=== PATIENT | female | born 1995 | race Caucasian/White ===

== ENCOUNTER 2017-07-01 15:36 | Emergency (ER) | payer BC ==
[~2017-07-01 15:36] MED LIST: KET10 PO
[2017-07-01] MEDS ORDERED: KETOROLAC 30 MG/ML VIAL IM ONE (16:05)
[2017-07-01] MEDS ORDERED: LORazepam 1 MG TAB PO ONE (16:05)
--- NOTE | 2017-07-01 16:09 | ER Report ---
History and Physical Time Seen By MD: 15:59 Hx. of Stated Complaint: MENSTRUAL CRAMPING (DILLON ARIAS MD) HPI/ROS CHIEF COMPLAINT: Abdominal pain HISTORY OF PRESENT ILLNESS: 21-year-old female reports history of endometriosis as diagnosed by her [employer]INER and history of severe menstrual cramps requiring hospital visit to the ER presents with pain similar to menstrual cramps onset today uncontrolled by medication prescribed every [address] Woodward. She does not recall the name at this time. She denies vaginal discharge or dysuria hematuria frequency or urgency. She is here today with her grandmother. She is tearful at this time. No fevers. No other concerns or complaints today REVIEW OF SYSTEMS: Constitutional: No fever, no chills. Eyes: No discharge. ENT: No sore throat. Cardiovascular: No chest pain, no palpitations. Respiratory: No cough, no shortness of breath. Gastrointestinal: No bloody stools Genitourinary: No hematuria. Musculoskeletal: No back pain. Skin: No rashes. Neurological: No headache. 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 She is tearful and appears to be in acute distress due to pain Eyes: Pupils equal and round no pallor or injection. ENT, Mouth: Mucous membranes are moist. Respiratory: There are no retractions, lungs are clear to auscultation. Cardiovascular: Regular rate and rhythm. No murmurs gallops or rubs Gastrointestinal: Abdomen is soft and non tender, no masses, bowel sounds normal. Neurological: Normal exam Skin: Warm and dry, no rashes. Musculoskeletal: Neck is supple non tender. Extremities are nontender, nonswollen and have full range of motion. No edema DIFFERENTIAL DIAGNOSIS: After history and physical exam differential diagnosis was considered for abdominal pain, appendicitis, endometriosis, ovarian cysts, ovarian torsion, cystitis endometritis PID (DILLON ARIAS MD) Medical Decision Making Data Points Result Diagram: 07/01/17 1621 07/01/17 1621 Laboratory Hematology Test 07/01/17 15:52 07/01/17 16:21 Urine Color Yellow Urine Clarity Clear Urine pH 6.0 pH (4.8-9.5) Urine Specific [place] 1.018 Urine Protein Negative mg/dL (NEGATIVE) Urine Glucose (UA) Negative mg/dL (NEGATIVE) Urine Ketones Negative mg/dL (NEGATIVE) Urine Blood Negative (NEGATIVE) Urine Nitrite Negative (NEGATIVE) Urine Bilirubin Negative (NEGATIVE) Urine Urobilinogen Negative mg/dL (0.2-1.9) Urine Leukocyte Esterase Negative (NEGATIVE) Urine RBC <1 /HPF (0-2/HPF) Urine WBC 2 /HPF (0-5/HPF) Urine Squamous Epithelial Cells None /LPF (</=FEW) Urine Bacteria Negative /HPF (NONE-FEW) Urine Mucus None /HPF (NONE-FEW) Urine HCG, Qualitative Negative (NEGATIVE) Red Blood Count 4.38 M/uL (4.17-5.56) Mean Corpuscular Volume 89.3 fL (80.0-96.0) Mean Corpuscular Hemoglobin 30.8 pg (26.0-33.0) Mean Corpuscular Hemoglobin Concent 34.4 g/dL (32.0-36.0) Red Cell Distribution Width 13.5 % (11.5-14.5) Mean Platelet Volume 7.1 fL (7.2-11.1) Neutrophils (%) (Auto) 75.9 % (39.4-72.5) Lymphocytes (%) (Auto) 17.8 % (17.6-49.6) Monocytes (%) (Auto) 5.2 % (4.1-12.4) Eosinophils (%) (Auto) 0.6 % (0.4-6.7) Basophils (%) (Auto) 0.5 % (0.3-1.4) Nucleated RBC Relative Count (auto) 0.0 /100WBC Neutrophils # (Auto) 6.7 K/uL (2.0-7.4) Lymphocytes # (Auto) 1.6 K/uL (1.3-3.6) Monocytes # (Auto) 0.5 K/uL (0.3-1.0) Eosinophils # (Auto) 0.1 K/uL (0.0-0.5) Basophils # (Auto) 0.0 K/uL (0.0-0.1) Nucleated RBC Absolute Count (auto) 0.00 K/uL Sodium Level 137 mmol/L (137-145) Potassium Level 4.0 mmol/L (3.5-5.0) Chloride Level 101 mmol/L (98-107) Carbon Dioxide Level 22 mmol/L (22-31) Blood Urea Nitrogen 9 mg/dl (7-18) Creatinine 0.70 mg/dl (0.52-1.04) Glomerular Filtration Rate Calc > 60.0 Random Glucose 113 mg/dl (75-110) Calcium Level 9.3 mg/dl (8.4-10.2) Lipase 310 U/L (23-300) Chemistry Test 07/01/17 15:52 07/01/17 16:21 Urine Color Yellow Urine Clarity Clear Urine pH 6.0 pH (4.8-9.5) Urine Specific [place] 1.018 Urine Protein Negative mg/dL (NEGATIVE) Urine Glucose (UA) Negative mg/dL (NEGATIVE) Urine Ketones Negative mg/dL (NEGATIVE) Urine Blood Negative (NEGATIVE) Urine Nitrite Negative (NEGATIVE) Urine Bilirubin Negative (NEGATIVE) Urine Urobilinogen Negative mg/dL (0.2-1.9) Urine Leukocyte Esterase Negative (NEGATIVE) Urine RBC <1 /HPF (0-2/HPF) Urine WBC 2 /HPF (0-5/HPF) Urine Squamous Epithelial Cells None /LPF (</=FEW) Urine Bacteria Negative /HPF (NONE-FEW) Urine Mucus None /HPF (NONE-FEW) Urine HCG, Qualitative Negative (NEGATIVE) White Blood Count 8.9 k/uL (4.5-11.0) Red Blood Count 4.38 M/uL (4.17-5.56) Hemoglobin 13.5 g/dL (12.0-16.0) Hematocrit 39.1 % (34.0-47.0) Mean Corpuscular Volume 89.3 fL (80.0-96.0) Mean Corpuscular Hemoglobin 30.8 pg (26.0-33.0) Mean Corpuscular Hemoglobin Concent 34.4 g/dL (32.0-36.0) Red Cell Distribution Width 13.5 % (11.5-14.5) Platelet Count 257 K/uL (150-450) Mean Platelet Volume 7.1 fL (7.2-11.1) Neutrophils (%) (Auto) 75.9 % (39.4-72.5) Lymphocytes (%) (Auto) 17.8 % (17.6-49.6) Monocytes (%) (Auto) 5.2 % (4.1-12.4) Eosinophils (%) (Auto) 0.6 % (0.4-6.7) Basophils (%) (Auto) 0.5 % (0.3-1.4) Nucleated RBC Relative Count (auto) 0.0 /100WBC Neutrophils # (Auto) 6.7 K/uL (2.0-7.4) Lymphocytes # (Auto) 1.6 K/uL (1.3-3.6) Monocytes # (Auto) 0.5 K/uL (0.3-1.0) Eosinophils # (Auto) 0.1 K/uL (0.0-0.5) Basophils # (Auto) 0.0 K/uL (0.0-0.1) Nucleated RBC Absolute Count (auto) 0.00 K/uL Glomerular Filtration Rate Calc > 60.0 Calcium Level 9.3 mg/dl (8.4-10.2) Lipase 310 U/L (23-300) Urinalysis Test 07/01/17 15:52 Urine Color Yellow Urine Clarity Clear Urine pH 6.0 pH (4.8-9.5) Urine Specific [place] 1.018 Urine Protein Negative mg/dL (NEGATIVE) Urine Glucose (UA) Negative mg/dL (NEGATIVE) Urine Ketones Negative mg/dL (NEGATIVE) Urine Blood Negative (NEGATIVE) Urine Nitrite Negative (NEGATIVE) Urine Bilirubin Negative (NEGATIVE) Urine Urobilinogen Negative mg/dL (0.2-1.9) Urine Leukocyte Esterase Negative (NEGATIVE) Urine RBC <1 /HPF (0-2/HPF) Urine WBC 2 /HPF (0-5/HPF) Urine Squamous Epithelial Cells None /LPF (</=FEW) Urine Bacteria Negative /HPF (NONE-FEW) Urine Mucus None /HPF (NONE-FEW) Urine HCG, Qualitative Negative (NEGATIVE) (DOUGLAS ALEMAN) ED Course/Re-evaluation ED Course Pt feeling much better upon return from ultrasound and after ED therapy. Vitals remain stable. Pt turned over to Dr Starks at shift change 6pm, pending final radiology read. Decision to Disposition Date: Jul 01, 2017 (DILLON ARIAS MD) Depart Departure Latest Vital Signs Vital Signs Date Time Temp Pulse Resp B/P (MAP) Pulse Ox O2 Delivery O2 Flow Rate FiO2 07/01/17 15:41 97.7 62 18 115/64 94 Room Air (DOUGLAS ALEMAN) Impression: Primary Impression: Pelvic pain Condition: Improved DILLON ARIAS MD Jul 01, 2017 16:09 DOUGLAS ALEMAN Jul 01, 2017 17:45
[2017-07-01 16:30] LABS: PLATELET COUNT, AUTOMATED 257 K/uL (150-450)
--- NOTE | 2017-07-01 17:58 | ER Report ---
History and Physical Time Seen By MD: 15:41 Hx. of Stated Complaint: MENSTRUAL CRAMPING HPI/ROS 21-year-old female reports history of endometriosis as diagnosed by her [employer]ER and history of severe menstrual cramps requiring hospital visit to the ER presents with pain similar to menstrual cramps onset today uncontrolled by medication prescribed every [address] Woodward. She does not recall the name at this time. She denies vaginal discharge or dysuria hematuria frequency or urgency. She is here today with her grandmother. She is tearful at this time. No fevers. No other concerns or complaints today. She has had multiple sets of diarrhea recently. Allergies: Coded Allergies: No Known Drug Allergies (Unverified , 08/27/16) Home Meds Active Scripts Ketorolac Tromethamine (KETOROLAC TROMETHAMINE) 10 Mg Tab, 10 MG PO Q6H Y for PAIN, #12 TAB 0 Refills Prov:DILLON ARIAS MD 07/01/17 Ketorolac Tromethamine (KETOROLAC TROMETHAMINE) 10 Mg Tab, 10 MG PO Q6H, #20 TAB Prov:ELIZABETH JOHNSON 08/27/16 Constitutional Physical Exam General Appearance: The patient is alert, has no immediate need for airway protection and no signs of toxicity. Tearful appears to be in distress due to pain Eyes: Pupils equal and round no pallor or injection. ENT, Mouth: Mucous membranes are moist. Respiratory: There are no retractions, lungs are clear to auscultation. Cardiovascular: Regular rate and rhythm. No murmurs gallops or rubs Gastrointestinal: Abdomen is soft and non tender, no masses, bowel sounds normal. Neurological: Normal neuro exam Skin: Warm and dry, no rashes. Musculoskeletal: Neck is supple non tender. Extremities are nontender, nonswollen and have full range of motion. No edema DIFFERENTIAL DIAGNOSIS: After history and physical exam differential diagnosis was considered for endometriosis and endometritis. Appendicitis urinary tract infection diarrhea Medical Decision Making Data Points Laboratory Hematology Test 07/01/17 15:52 07/01/17 16:21 Urine Color Yellow Urine Clarity Clear Urine pH 6.0 pH (4.8-9.5) Urine Specific [place] 1.018 Urine Protein Negative mg/dL (NEGATIVE) Urine Glucose (UA) Negative mg/dL (NEGATIVE) Urine Ketones Negative mg/dL (NEGATIVE) Urine Blood Negative (NEGATIVE) Urine Nitrite Negative (NEGATIVE) Urine Bilirubin Negative (NEGATIVE) Urine Urobilinogen Negative mg/dL (0.2-1.9) Urine Leukocyte Esterase Negative (NEGATIVE) Urine RBC <1 /HPF (0-2/HPF) Urine WBC 2 /HPF (0-5/HPF) Urine Squamous Epithelial Cells None /LPF (</=FEW) Urine Bacteria Negative /HPF (NONE-FEW) Urine Mucus None /HPF (NONE-FEW) Urine HCG, Qualitative Negative (NEGATIVE) Red Blood Count 4.38 M/uL (4.17-5.56) Mean Corpuscular Volume 89.3 fL (80.0-96.0) Mean Corpuscular Hemoglobin 30.8 pg (26.0-33.0) Mean Corpuscular Hemoglobin Concent 34.4 g/dL (32.0-36.0) Red Cell Distribution Width 13.5 % (11.5-14.5) Mean Platelet Volume 7.1 fL (7.2-11.1) Neutrophils (%) (Auto) 75.9 % (39.4-72.5) Lymphocytes (%) (Auto) 17.8 % (17.6-49.6) Monocytes (%) (Auto) 5.2 % (4.1-12.4) Eosinophils (%) (Auto) 0.6 % (0.4-6.7) Basophils (%) (Auto) 0.5 % (0.3-1.4) Nucleated RBC Relative Count (auto) 0.0 /100WBC Neutrophils # (Auto) 6.7 K/uL (2.0-7.4) Lymphocytes # (Auto) 1.6 K/uL (1.3-3.6) Monocytes # (Auto) 0.5 K/uL (0.3-1.0) Eosinophils # (Auto) 0.1 K/uL (0.0-0.5) Basophils # (Auto) 0.0 K/uL (0.0-0.1) Nucleated RBC Absolute Count (auto) 0.00 K/uL Sodium Level 137 mmol/L (137-145) Potassium Level 4.0 mmol/L (3.5-5.0) Chloride Level 101 mmol/L (98-107) Carbon Dioxide Level 22 mmol/L (22-31) Blood Urea Nitrogen 9 mg/dl (7-18) Creatinine 0.70 mg/dl (0.52-1.04) Glomerular Filtration Rate Calc > 60.0 Random Glucose 113 mg/dl (75-110) Calcium Level 9.3 mg/dl (8.4-10.2) Lipase 310 U/L (23-300) Chemistry Test 07/01/17 15:52 07/01/17 16:21 Urine Color Yellow Urine Clarity Clear Urine pH 6.0 pH (4.8-9.5) Urine Specific [place] 1.018 Urine Protein Negative mg/dL (NEGATIVE) Urine Glucose (UA) Negative mg/dL (NEGATIVE) Urine Ketones Negative mg/dL (NEGATIVE) Urine Blood Negative (NEGATIVE) Urine Nitrite Negative (NEGATIVE) Urine Bilirubin Negative (NEGATIVE) Urine Urobilinogen Negative mg/dL (0.2-1.9) Urine Leukocyte Esterase Negative (NEGATIVE) Urine RBC <1 /HPF (0-2/HPF) Urine WBC 2 /HPF (0-5/HPF) Urine Squamous Epithelial Cells None /LPF (</=FEW) Urine Bacteria Negative /HPF (NONE-FEW) Urine Mucus None /HPF (NONE-FEW) Urine HCG, Qualitative Negative (NEGATIVE) White Blood Count 8.9 k/uL (4.5-11.0) Red Blood Count 4.38 M/uL (4.17-5.56) Hemoglobin 13.5 g/dL (12.0-16.0) Hematocrit 39.1 % (34.0-47.0) Mean Corpuscular Volume 89.3 fL (80.0-96.0) Mean Corpuscular Hemoglobin 30.8 pg (26.0-33.0) Mean Corpuscular Hemoglobin Concent 34.4 g/dL (32.0-36.0) Red Cell Distribution Width 13.5 % (11.5-14.5) Platelet Count 257 K/uL (150-450) Mean Platelet Volume 7.1 fL (7.2-11.1) Neutrophils (%) (Auto) 75.9 % (39.4-72.5) Lymphocytes (%) (Auto) 17.8 % (17.6-49.6) Monocytes (%) (Auto) 5.2 % (4.1-12.4) Eosinophils (%) (Auto) 0.6 % (0.4-6.7) Basophils (%) (Auto) 0.5 % (0.3-1.4) Nucleated RBC Relative Count (auto) 0.0 /100WBC Neutrophils # (Auto) 6.7 K/uL (2.0-7.4) Lymphocytes # (Auto) 1.6 K/uL (1.3-3.6) Monocytes # (Auto) 0.5 K/uL (0.3-1.0) Eosinophils # (Auto) 0.1 K/uL (0.0-0.5) Basophils # (Auto) 0.0 K/uL (0.0-0.1) Nucleated RBC Absolute Count (auto) 0.00 K/uL Glomerular Filtration Rate Calc > 60.0 Calcium Level 9.3 mg/dl (8.4-10.2) Lipase 310 U/L (23-300) Urinalysis Test 07/01/17 15:52 Urine Color Yellow Urine Clarity Clear Urine pH 6.0 pH (4.8-9.5) Urine Specific [place] 1.018 Urine Protein Negative mg/dL (NEGATIVE) Urine Glucose (UA) Negative mg/dL (NEGATIVE) Urine Ketones Negative mg/dL (NEGATIVE) Urine Blood Negative (NEGATIVE) Urine Nitrite Negative (NEGATIVE) Urine Bilirubin Negative (NEGATIVE) Urine Urobilinogen Negative mg/dL (0.2-1.9) Urine Leukocyte Esterase Negative (NEGATIVE) Urine RBC <1 /HPF (0-2/HPF) Urine WBC 2 /HPF (0-5/HPF) Urine Squamous Epithelial Cells None /LPF (</=FEW) Urine Bacteria Negative /HPF (NONE-FEW) Urine Mucus None /HPF (NONE-FEW) Urine HCG, Qualitative Negative (NEGATIVE) ED Course/Re-evaluation ED Course Much improved after pelvic ultrasound any therapy. Vitals remain stable for discharge. Abdomen rechecked and no signs of appendicitis or peritonitis are present. Encouraged to follow up with [employer] for further care and evaluation. Decision to Disposition Date: Jul 01, 2017 Decision to Disposition Time: 19:00 Depart Departure Latest Vital Signs Impression: Primary Impression: Pelvic pain Condition: Improved Disposition: HOME OR SELF-CARE New Scripts Ketorolac Tromethamine (KETOROLAC TROMETHAMINE) 10 Mg Tab 10 MG PO Q6H Y for PAIN, #12 TAB 0 Refills Prov: DILLON ARIAS MD 07/01/17 Patient Instructions: Pelvic Pain (ED) DILLON ARIAS MD Jul 01, 2017 17:58
[2017-07-01] MEDS ORDERED: KET10 PO (18:00)
--- NOTE | 2017-07-01 18:11 | RADIOLOGY IMAGING REPORT ---
FACILITY: [facility] [place] PATIENT NAME: Cata Gerard : 1995 MR: [id number] V: [id number] EXAM DATE: ORDERING PHYSICIAN: DILLON ARIAS TECHNOLOGIST: Location: [facility] Patient: Cata Gerard : 1995 Visit/Account:[id number] Date of Sevice: 07/01/2017 TRANSVAGINAL NON-OB HISTORY: PELVIC PAIN, ovarian torsion, endometriosis TECHNIQUE: Transvaginal ultrasound pelvis. COMPARISON: August 27, 2016 FINDINGS: Uterus: ; 6.4 cm length x 3.2 cm AP x 4.6 cm transverse. Myometrium: Hypervascular. Endometrium: Unremarkable; double thickness 5.2 mm. Cervix: Grossly negative. Ovaries: Right - 2.9 x 1.8 x 2.4 cm Left - 2.5 x 1.6 x 2.9 cm Blood flow is documented in each ovary by duplex Doppler ultrasound. Adnexa: There are prominent adnexal vessels bilaterally. Free pelvic fluid: Mild. IMPRESSION: The uterine myometrium appears hypervascular although discrete mass is not demonstrated Both ovaries appeared unremarkable with arterial and venous flow noted in both ovary Mild amount of free pelvic fluid Mildly prominent adnexal vessels Report Dictated By: Neyda Miles MD at 07/01/2017 6:04 PM Report E-Signed By: Neyda Miles MD at 07/01/2017 6:07 PM WSN:[id number]
[2017-07-01 19:00] VITALS: BP 108/65
== END 2017-07-01 19:03 | disposition home or self-care (01) ==
LOC: ER 16:01
DX: R10.2 Pelvic and perineal pain (principal)
CPT/HCPCS: 36415; 76830; 81001; 81025; 83690; 85025; 96372; 99283; J1885; 82310; 82374; 82435; 82565; 82947; 84132; 84295; 84520

== ENCOUNTER 2017-09-20 11:14 | Emergency (ER) | payer BC ==
--- NOTE | 2017-09-20 11:21 | ER Report ---
History and Physical Time Seen By MD: 11:20 HPI/ROS CHIEF COMPLAINT: Menstrual cramping HISTORY OF PRESENT ILLNESS: This is a 21-year-old female who presents to the emergency department for her "usual" menstrual cramps. Patient states that she started her menstrual cycle this morning and subsequently developed her "normal " menstrual type of cramps. Patient states that she has been told by her FIELD CONTACT TECHNICIAN back home that she does have endometriosis. Patient denies dysuria, no diarrhea however she does have nausea secondary to the pain. Patient denies shortness of breath, chest pain, rashes or abnormal menstrual discharge. Patient states that she has been here several times for this and she does not want any imaging studies done she adjust states she needs help with the pain. She has not followed up with FIELD CONTACT TECHNICIAN in [place] we did discuss this and we will send her home with some information regarding the local FIELD CONTACT TECHNICIAN's. REVIEW OF SYSTEMS: Respiratory: No cough, no dyspnea. Cardiovascular: No chest pain, no palpitations. Gastrointestinal: As above. Musculoskeletal: No back pain. Allergies: Coded Allergies: No Known Drug Allergies (Unverified , 09/20/17) Home Meds Active Scripts Ketorolac Tromethamine (KETOROLAC TROMETHAMINE) 10 Mg Tab, 10 MG PO Q6H, #20 TAB Prov:ELIZABETH JOHNSON 08/27/16 Reported Medications [ Control] No Conflict Check 09/20/17 Discontinued Scripts Ketorolac Tromethamine (KETOROLAC TROMETHAMINE) 10 Mg Tab, 10 MG PO Q6H Y for PAIN, #12 TAB 0 Refills Prov:DILLON ARIAS MD 07/01/17 Past Medical/Surgical History Patient has a past medical and surgical history of endometriosis, menstrual cramps, compartment syndrome to lower extremities bilaterally. Reviewed Nurses Notes: Yes Constitutional Vital Sign - Last 24 Hours 09/20/17 09/20/17 09/20/17 09/20/17 11:20 11:30 12:00 12:30 Temp 98.0 Pulse 64 56 Resp 18 B/P (MAP) 95/73 102/80 (87) 93/55 (68) Pulse Ox 94 97 86 94 O2 Delivery Room Air Intake and Output 09/20/17 09/20/17 09/21/17 15:00 23:00 07:00 Intake Total 1000 ml Balance 1000 ml Physical Exam General Appearance: The patient is alert, has no immediate need for airway protection and no current signs of toxicity. Eyes: Pupils equal and round no injection. Respiratory: Chest is non tender, lungs are clear to auscultation. Cardiac: regular rate and rhythm. Gastrointestinal: Abdomen is soft, tender with deep palpation to right and left lower quadrants. no masses, bowel sounds normal. Musculoskeletal: Neck: Neck is supple and non tender. Extremities have full range of motion and are non tender. Skin: No rashes or lesions. DIFFERENTIAL DIAGNOSIS: After history and physical exam differential diagnosis was considered for abdominal pain including but not limited to appendicitis, cholecystitis, menstrual cramps, gastritis and urinary tract infection. Medical Decision Making Data Points Result Diagram: 09/20/17 1131 09/20/17 1131 Laboratory Hematology Test 09/20/17 00:00 09/20/17 11:31 Urine Color Yellow Urine Clarity Cloudy Urine pH 7.0 pH (4.8-9.5) Urine Specific [place] 1.023 Urine Protein Negative mg/dL (NEGATIVE) Urine Glucose (UA) Negative mg/dL (NEGATIVE) Urine Ketones Negative mg/dL (NEGATIVE) Urine Blood Negative (NEGATIVE) Urine Nitrite Negative (NEGATIVE) Urine Bilirubin Negative (NEGATIVE) Urine Urobilinogen Negative mg/dL (0.2-1.9) Urine Leukocyte Esterase Negative (NEGATIVE) Urine RBC 1 /HPF (0-2/HPF) Urine WBC 1 /HPF (0-5/HPF) Urine Squamous Epithelial Cells Many /LPF (</=FEW) Urine Amorphous Crystals Few /HPF Urine Bacteria Few /HPF (NONE-FEW) Urine Mucus Few /HPF (NONE-FEW) Urine HCG, Qualitative Negative (NEGATIVE) Red Blood Count 4.95 M/uL (4.17-5.56) Mean Corpuscular Volume 87.8 fL (80.0-96.0) Mean Corpuscular Hemoglobin 30.2 pg (26.0-33.0) Mean Corpuscular Hemoglobin Concent 34.4 g/dL (32.0-36.0) Red Cell Distribution Width 13.1 % (11.5-14.5) Mean Platelet Volume 7.3 fL (7.2-11.1) Neutrophils (%) (Auto) 67.0 % (39.4-72.5) Lymphocytes (%) (Auto) 23.0 % (17.6-49.6) Monocytes (%) (Auto) 7.8 % (4.1-12.4) Eosinophils (%) (Auto) 1.4 % (0.4-6.7) Basophils (%) (Auto) 0.8 % (0.3-1.4) Nucleated RBC Relative Count (auto) 0.1 /100WBC Neutrophils # (Auto) 5.2 K/uL (2.0-7.4) Lymphocytes # (Auto) 1.8 K/uL (1.3-3.6) Monocytes # (Auto) 0.6 K/uL (0.3-1.0) Eosinophils # (Auto) 0.1 K/uL (0.0-0.5) Basophils # (Auto) 0.1 K/uL (0.0-0.1) Nucleated RBC Absolute Count (auto) 0.00 K/uL Sodium Level 141 mmol/L (137-145) Potassium Level 3.8 mmol/L (3.5-5.0) Chloride Level 101 mmol/L (98-107) Carbon Dioxide Level 24 mmol/L (22-31) Blood Urea Nitrogen 13 mg/dl (7-18) Creatinine 0.70 mg/dl (0.52-1.04) Glomerular Filtration Rate Calc > 60.0 Random Glucose 93 mg/dl (75-110) Calcium Level 10.4 mg/dl (8.4-10.2) Total Bilirubin 0.8 mg/dl (0.2-1.3) Aspartate Amino Transf (AST/SGOT) 39 U/L (0-35) Alanine Aminotransferase (ALT/SGPT) 38 U/L (0-56) Alkaline Phosphatase 92 U/L (0-126) Total Protein 7.9 gm/dl (6.3-8.2) Albumin 4.5 g/dl (3.5-5.0) Chemistry Test 09/20/17 00:00 09/20/17 11:31 Urine Color Yellow Urine Clarity Cloudy Urine pH 7.0 pH (4.8-9.5) Urine Specific [place] 1.023 Urine Protein Negative mg/dL (NEGATIVE) Urine Glucose (UA) Negative mg/dL (NEGATIVE) Urine Ketones Negative mg/dL (NEGATIVE) Urine Blood Negative (NEGATIVE) Urine Nitrite Negative (NEGATIVE) Urine Bilirubin Negative (NEGATIVE) Urine Urobilinogen Negative mg/dL (0.2-1.9) Urine Leukocyte Esterase Negative (NEGATIVE) Urine RBC 1 /HPF (0-2/HPF) Urine WBC 1 /HPF (0-5/HPF) Urine Squamous Epithelial Cells Many /LPF (</=FEW) Urine Amorphous Crystals Few /HPF Urine Bacteria Few /HPF (NONE-FEW) Urine Mucus Few /HPF (NONE-FEW) Urine HCG, Qualitative Negative (NEGATIVE) White Blood Count 7.8 k/uL (4.5-11.0) Red Blood Count 4.95 M/uL (4.17-5.56) Hemoglobin 15.0 g/dL (12.0-16.0) Hematocrit 43.5 % (34.0-47.0) Mean Corpuscular Volume 87.8 fL (80.0-96.0) Mean Corpuscular Hemoglobin 30.2 pg (26.0-33.0) Mean Corpuscular Hemoglobin Concent 34.4 g/dL (32.0-36.0) Red Cell Distribution Width 13.1 % (11.5-14.5) Platelet Count 297 K/uL (150-450) Mean Platelet Volume 7.3 fL (7.2-11.1) Neutrophils (%) (Auto) 67.0 % (39.4-72.5) Lymphocytes (%) (Auto) 23.0 % (17.6-49.6) Monocytes (%) (Auto) 7.8 % (4.1-12.4) Eosinophils (%) (Auto) 1.4 % (0.4-6.7) Basophils (%) (Auto) 0.8 % (0.3-1.4) Nucleated RBC Relative Count (auto) 0.1 /100WBC Neutrophils # (Auto) 5.2 K/uL (2.0-7.4) Lymphocytes # (Auto) 1.8 K/uL (1.3-3.6) Monocytes # (Auto) 0.6 K/uL (0.3-1.0) Eosinophils # (Auto) 0.1 K/uL (0.0-0.5) Basophils # (Auto) 0.1 K/uL (0.0-0.1) Nucleated RBC Absolute Count (auto) 0.00 K/uL Glomerular Filtration Rate Calc > 60.0 Calcium Level 10.4 mg/dl (8.4-10.2) Total Bilirubin 0.8 mg/dl (0.2-1.3) Aspartate Amino Transf (AST/SGOT) 39 U/L (0-35) Alanine Aminotransferase (ALT/SGPT) 38 U/L (0-56) Alkaline Phosphatase 92 U/L (0-126) Total Protein 7.9 gm/dl (6.3-8.2) Albumin 4.5 g/dl (3.5-5.0) Urinalysis Test 09/20/17 00:00 Urine Color Yellow Urine Clarity Cloudy Urine pH 7.0 pH (4.8-9.5) Urine Specific [place] 1.023 Urine Protein Negative mg/dL (NEGATIVE) Urine Glucose (UA) Negative mg/dL (NEGATIVE) Urine Ketones Negative mg/dL (NEGATIVE) Urine Blood Negative (NEGATIVE) Urine Nitrite Negative (NEGATIVE) Urine Bilirubin Negative (NEGATIVE) Urine Urobilinogen Negative mg/dL (0.2-1.9) Urine Leukocyte Esterase Negative (NEGATIVE) Urine RBC 1 /HPF (0-2/HPF) Urine WBC 1 /HPF (0-5/HPF) Urine Squamous Epithelial Cells Many /LPF (</=FEW) Urine Amorphous Crystals Few /HPF Urine Bacteria Few /HPF (NONE-FEW) Urine Mucus Few /HPF (NONE-FEW) Urine HCG, Qualitative Negative (NEGATIVE) ED Course/Re-evaluation Clinical Indication for ER IV: Hydration, IV Access ED Course The patient was admitted to a room. A history and physical were obtained. Differential diagnoses were considered. An IV was started. A CBC, CMP were obtained. A UA and urine hCG were obtained. Lab studies are remarkable negative UA negative hCG. 1 L normal saline bolus was given. 30 mg IV Toradol. Patient states she is feeling much better. I did review the patient's lab results with her. I did tell the patient that she does need to follow-up with an FIELD CONTACT TECHNICIAN next week. Patient did express understanding. Patient had a lot of questions or concerns and was discharged home. The patient also declined any imaging she has had previous images for the same symptoms. Decision to Disposition Date: September 20, 2017 Decision to Disposition Time: 12:34 Depart Departure Latest Vital Signs Vital Signs Date Time Temp Pulse Resp B/P (MAP) Pulse Ox O2 Delivery O2 Flow Rate FiO2 09/20/17 12:30 93/55 (68) 94 09/20/17 12:00 56 09/20/17 11:20 98.0 18 Room Air Impression: Primary Impression: Menstrual cramps Condition: Improved Disposition: HOME OR SELF-CARE Referrals: RIPENING ROOM ATTENDANT 5 Days Patient Instructions: Endometriosis (ED), Menstruation (GEN) Additional Instructions: Drink plenty of fluids. Get plenty of rest. Take the Toradol as directed. If you take Toradol for pain do not take Ibuprofen too, you can take on OR the other. You can also take 2 extra strength Tylenol every 8 hours as needed for additional pain relief. Establish care with a local FIELD CONTACT TECHNICIAN next week. Return to the ED for any other concerns or worsening symptoms. ROSANNA KIRBY MISCELLANEOUS MACHINE OPERATOR-BC September 20, 2017 11:21
[2017-09-20] MEDS ORDERED: BIRTH CONTROL (11:24)
[2017-09-20] MEDS ORDERED: NS(*) 0.9% 1000 ML BAG 1,000 ML IV ONE (11:26)
[2017-09-20] MEDS ORDERED: KETOROLAC 30 MG/ML VIAL IM ONE (11:30)
[2017-09-20] MEDS ORDERED: ONDANSETRON 4 MG/2 ML VIAL IVP ONE (11:30)
[2017-09-20] MEDS ORDERED: KETOROLAC 30 MG/ML VIAL IVP ONE (11:35)
[2017-09-20 11:44] LABS: PLATELET COUNT, AUTOMATED 297 K/uL (150-450)
[2017-09-20 12:30] VITALS: BP 93/55
== END 2017-09-20 12:37 | disposition home or self-care (01) ==
LOC: ER 11:15
DX: N94.6 Dysmenorrhea, unspecified (principal)
CPT/HCPCS: 81001; 81025; 85025; 96361; 96374; 96375; 99284; J1885; J2405; J7030; 82040; 82247; 82310; 82374; 82435; 82565; 82947; 84075; 84132; 84155; 84295; 84450; 84460; 84520

== ENCOUNTER 2018-01-08 05:22 | Emergency (ER) | payer BC ==
[~2018-01-08 05:22] MED LIST changes: +BIRTH CONTROL
--- NOTE | 2018-01-08 05:33 | ER Report ---
History and Physical Time Seen By MD: 05:33 Hx. of Stated Complaint: PATIENT HAS LOWER RIGHT SIDED ABD PAIN THAT STARTED THIS AM (JENNIFER MENDOZA MD) Time Seen By MD: 07:53 (VIOLA MAN MD) HPI/ROS CHIEF COMPLAINT: abdominal pain HISTORY OF PRESENT ILLNESS: This is a 22 year old female. She started having abdominal pain this morning. Severe pain, does not radiate. Nothing makes it worse or better. Normal urination without dysuria. Loose stools, but no diarrhea or blood in the stools. Last period was about a month ago. She thinks that she may have started her period today. She has been told by doctors in [place] that they think she has endometriosis. No fevers or chills. Was feeling normal state of health prior to this starting this morning. Some nausea, no vomiting. No chest pain or shortness of breath. (JENNIFER MENDOZA MD) Allergies: Coded Allergies: No Known Drug Allergies (Unverified , 01/08/18) Home Meds Active Scripts Ketorolac Tromethamine (KETOROLAC TROMETHAMINE) 10 Mg Tab, 10 MG PO Q6H, #20 TAB Prov:ELIZABETHELIZABETH RAILCAR MECHANIC 08/27/16 Discontinued Reported Medications [ Control] No Conflict Check 09/20/17 Reviewed Nurses Notes: Yes (JENNIFER MENDOZA MD) Constitutional Vital Sign - Last 24 Hours 01/08/18 01/08/18 01/08/18 01/08/18 05:22 05:25 05:25 05:44 Temp 97.6 Pulse ??? 58 Resp 17 B/P (MAP) 119/76 119/76 (90) 103/56 (72) Pulse Ox 96 O2 Delivery Room Air 01/08/18 01/08/18 01/08/18 01/08/18 05:52 06:00 06:22 06:30 Pulse 49 B/P (MAP) 109/72 (84) 98/59 (72) Pulse Ox 88 98 01/08/18 01/08/18 01/08/18 01/08/18 06:52 07:00 07:05 07:10 Pulse 52 66 52 B/P (MAP) 105/61 (76) Pulse Ox 100 100 100 01/08/18 01/08/18 01/08/18 01/08/18 07:15 07:20 07:25 07:40 Pulse 49 56 64 61 Pulse Ox 99 97 98 96 01/08/18 01/08/18 07:45 07:50 Pulse 57 59 Pulse Ox 94 94 (VIOLA MAN MD) Physical Exam General Appearance: The patient is alert. Having severe pain and in distress from this, writhing in pain. Eyes: Pupils are equal, round. No pallor, injection or icterus. ENT: Mucous membranes are moist. Normal oral mucosa. Posterior oropharynx is normal. Neck: Supple and non tender. No lymphadenopathy. Respiratory: Lungs are clear to auscultation. Cardiovascular: Regular rate and rhythm. No murmurs, gallops or rubs. Normal capillary refill. No edema. Gastrointestinal: Abdomen is soft, tender in right lower abdomen with guarding, but no rebound. Nondistended. No masses or organomegaly. Normal active bowel sounds. No costovertebral angle tenderness with percussion. Neurological: Alert and oriented x3. Skin: Warm and dry. No rashes. Musculoskeletal: Extremities are nontender. No tenderness in palpation of the cervical, thoracic and lumbar spine. DIFFERENTIAL DIAGNOSIS: After history and physical exam, differential diagnosis was considered for abdominal pain in a female including but not limited to ovarian cyst, endometriosis, ovarian torsion, urinary tract infection, and appendicitis. (JENNIFER MENDOZA MD) Medical Decision Making Data Points Result Diagram: 01/08/18 0532 01/08/18 0532 Laboratory Hematology Test 01/08/18 05:32 01/08/18 07:36 Red Blood Count 4.73 M/uL (4.17-5.56) Mean Corpuscular Volume 90.9 fL (80.0-96.0) Mean Corpuscular Hemoglobin 31.0 pg (26.0-33.0) Mean Corpuscular Hemoglobin Concent 34.1 g/dL (32.0-36.0) Red Cell Distribution Width 12.7 % (11.5-14.5) Mean Platelet Volume 7.3 fL (7.2-11.1) Neutrophils (%) (Auto) 52.0 % (39.4-72.5) Lymphocytes (%) (Auto) 36.2 % (17.6-49.6) Monocytes (%) (Auto) 10.0 % (4.1-12.4) Eosinophils (%) (Auto) 1.3 % (0.4-6.7) Basophils (%) (Auto) 0.5 % (0.3-1.4) Nucleated RBC Relative Count (auto) 0.0 /100WBC Neutrophils # (Auto) 4.0 K/uL (2.0-7.4) Lymphocytes # (Auto) 2.8 K/uL (1.3-3.6) Monocytes # (Auto) 0.8 K/uL (0.3-1.0) Eosinophils # (Auto) 0.1 K/uL (0.0-0.5) Basophils # (Auto) 0.0 K/uL (0.0-0.1) Nucleated RBC Absolute Count (auto) 0.00 K/uL Sodium Level 139 mmol/L (137-145) Potassium Level 3.8 mmol/L (3.5-5.0) Chloride Level 102 mmol/L (98-107) Carbon Dioxide Level 26 mmol/L (22-31) Blood Urea Nitrogen 14 mg/dl (7-18) Creatinine 0.70 mg/dl (0.52-1.04) Glomerular Filtration Rate Calc > 60.0 Random Glucose 113 mg/dl (75-110) Calcium Level 9.5 mg/dl (8.4-10.2) Total Bilirubin 0.8 mg/dl (0.2-1.3) Aspartate Amino Transf (AST/SGOT) 37 U/L (0-35) Alanine Aminotransferase (ALT/SGPT) 38 U/L (0-56) Alkaline Phosphatase 65 U/L (0-126) C-Reactive Protein < 0.5 mg/dl (<1.0) Total Protein 7.3 g/dl (6.3-8.2) Albumin 4.2 g/dl (3.5-5.0) Amylase Level 91 U/L (0-110) Lipase 222 U/L (23-300) Human Chorionic Gonadotropin, Qual Negative (NEGATIVE) Chemistry Test 01/08/18 05:32 01/08/18 07:36 White Blood Count 7.7 k/uL (4.5-11.0) Red Blood Count 4.73 M/uL (4.17-5.56) Hemoglobin 14.7 g/dL (12.0-16.0) Hematocrit 43.0 % (34.0-47.0) Mean Corpuscular Volume 90.9 fL (80.0-96.0) Mean Corpuscular Hemoglobin 31.0 pg (26.0-33.0) Mean Corpuscular Hemoglobin Concent 34.1 g/dL (32.0-36.0) Red Cell Distribution Width 12.7 % (11.5-14.5) Platelet Count 314 K/uL (150-450) Mean Platelet Volume 7.3 fL (7.2-11.1) Neutrophils (%) (Auto) 52.0 % (39.4-72.5) Lymphocytes (%) (Auto) 36.2 % (17.6-49.6) Monocytes (%) (Auto) 10.0 % (4.1-12.4) Eosinophils (%) (Auto) 1.3 % (0.4-6.7) Basophils (%) (Auto) 0.5 % (0.3-1.4) Nucleated RBC Relative Count (auto) 0.0 /100WBC Neutrophils # (Auto) 4.0 K/uL (2.0-7.4) Lymphocytes # (Auto) 2.8 K/uL (1.3-3.6) Monocytes # (Auto) 0.8 K/uL (0.3-1.0) Eosinophils # (Auto) 0.1 K/uL (0.0-0.5) Basophils # (Auto) 0.0 K/uL (0.0-0.1) Nucleated RBC Absolute Count (auto) 0.00 K/uL Glomerular Filtration Rate Calc > 60.0 Calcium Level 9.5 mg/dl (8.4-10.2) Total Bilirubin 0.8 mg/dl (0.2-1.3) Aspartate Amino Transf (AST/SGOT) 37 U/L (0-35) Alanine Aminotransferase (ALT/SGPT) 38 U/L (0-56) Alkaline Phosphatase 65 U/L (0-126) C-Reactive Protein < 0.5 mg/dl (<1.0) Total Protein 7.3 g/dl (6.3-8.2) Albumin 4.2 g/dl (3.5-5.0) Amylase Level 91 U/L (0-110) Lipase 222 U/L (23-300) Human Chorionic Gonadotropin, Qual Negative (NEGATIVE) Urinalysis Test 01/08/18 07:36 (VIOLA MAN MD) ED Course/Re-evaluation Clinical Indication for ER IV: Hydration, IV Access ED Course Initially ordered lab and CT scan. Because of severe pain, gave Dilaudid 0.5mg IV and Zofran 4mg IV. Concern expressed regarding CT scan, because she has had pain like this in the past with multiple workups never showing a cause. Though has been that this may be endometriosis. Discussed with the patient, and with mother on speaker phone, regarding testing needed to rule out severe problems, but understand the interest in wanting to avoid radiation and cost if not going to help. After our conversation, we will begin with an ultrasound (transvaginal pelvic and right lower quadrant) and then proceed further if needed once the ultrasound and labs are back. (JENNIFER MENDOZA MD) ED Course ED clinical course medical decision making this 22-year-old female who presented to the emergency department with a complaint of right lower quadrant pain ultrasound confirms a ovarian cyst with free fluid in the pelvis repeat examination was benign little to no tenderness normal white count no fever I do not believe this is episodic appendicitis and do believe this is most likely frequent ruptures of ovarian cyst with complicated a potential endometriosis will refer her to [employer] and spoke to her mother and with detail Decision to Disposition Date: Jan 08, 2018 Decision to Disposition Time: 07:53 (VIOLA MAN MD) Depart Departure Latest Vital Signs Vital Signs Date Time Temp Pulse Resp B/P (MAP) Pulse Ox O2 Delivery O2 Flow Rate FiO2 01/08/18 07:50 59 94 01/08/18 07:00 105/61 (76) 01/08/18 05:25 97.6 17 Room Air (VIOLA MAN MD) Impression: Primary Impression: Ruptured ovarian cyst Condition: Improved Disposition: HOME OR SELF-CARE Referrals: GIAN PENA MD 5 Days Patient Instructions: Ruptured Ovarian Cyst (DC) JENNIFER MENDOZA MD Jan 08, 2018 05:33 VIOLA MAN MD Jan 08, 2018 07:54
[2018-01-08] MEDS ORDERED: NS(*) 0.9% 1000 ML BAG 1,000 ML IV ONE (05:36)
[2018-01-08] MEDS ORDERED: ONDANSETRON 4 MG/2 ML VIAL IVP ONE (05:40)
[2018-01-08] MEDS ORDERED: HYDROMORPHONE HCL 1 MG/ML SYRINGE IVP ONE (05:40)
[2018-01-08] MEDS ORDERED: IOPAMIDOL 76% 75 ML INFUS BTL 0 ML ONE (05:55)
[2018-01-08 05:56] LABS: PLATELET COUNT, AUTOMATED 314 K/uL (150-450)
[2018-01-08 07:00] VITALS: BP 105/61
--- NOTE | 2018-01-08 07:58 | RADIOLOGY IMAGING REPORT ---
FACILITY: [facility] - [place] PATIENT NAME: Cata Gerard : 1995 MR: [id number] V: [id number] EXAM DATE: ORDERING PHYSICIAN: JENNIFER MENDOZA TECHNOLOGIST: Location: [facility] [place] Patient: Cata Gerard : 1995 Visit/Account:[id number] Date of Sevice: 01/08/2018 Limited ultrasound of the abdomen: Indication: Right lower quadrant pain. Technique: Targeted imaging was performed in the right lower quadrant. Comparison: None. Findings: The appendix was not visualized. A small amount of free fluid is present, which is a nonspe cific finding. No circumscribed fluid collection or soft tissue mass is identified. Impression: The appendix was not visualized. A small amount of free fluid is present. Additional clin ical correlation is recommended. Report Dictated By: Clarence Castro MD at 01/08/2018 7:46 AM Report E-Signed By: Clarence Castro MD at 01/08/2018 7:53 AM WSN:[id number]
--- NOTE | 2018-01-08 08:04 | RADIOLOGY IMAGING REPORT ---
FACILITY: [facility] - [place] PATIENT NAME: Cata Gerard : 1995 MR: [id number] V: [id number] EXAM DATE: ORDERING PHYSICIAN: JENNIFER MENDOZA TECHNOLOGIST: Location: [facility] - [place] Patient: Cata Gerard : 1995 Visit/Account:[id number] Date of Sevice: 01/08/2018 Ultrasound of the pelvis: Indication: Right lower quadrant and pelvic pain. Technique: Transvaginal imaging, with Doppler. Comparison: 07/01/2017 Uterus: Normal in size, shape, and echogenicity, measuring 7.3 x 4.8 x 3.1 cm. There is no evidence o f mass, calcification, or fluid. The endometrial stripe measures 6 mm. Right ovary/adnexa: The right ovary measures 3.1 x 2.8 x 1.6 cm. A few small follicles are present. D oppler images demonstrate no evidence of torsion. There is a small amount of free fluid in the right adnexal region. No circumscribed fluid collection or mass is identified. Left ovary/adnexa: The left ovary measures 2.8 x 2.4 x 2.3 cm. Multiple small follicles are present. There appears to be a 1.2 cm complex cyst, which may be hemorrhagic. Doppler images demonstrate no ev idence of ovarian torsion. No adnexal mass or fluid collection is identified. Free fluid: A small amount of anechoic free fluid is present, which is a nonspecific finding. IMPRESSION: There appears to be a small hemorrhagic cyst in the left ovary. The ovaries are otherwise unremarkable. There are no signs of torsion. The uterus appears normal. A small amount of anechoic free fluid is present, which is a nonspecific finding. Report Dictated By: Clarence Castro MD at 01/08/2018 7:53 AM Report E-Signed By: Clarence Castro MD at 01/08/2018 8:00 AM WSN:[id number]
== END 2018-01-08 08:08 | disposition home or self-care (01) ==
LOC: ER 05:24
DX: N83.202 Unspecified ovarian cyst, left side (principal)
CPT/HCPCS: 76705; 76830; 81001; 82150; 83690; 84703; 85025; 86140; 96361; 96374; 96375; 99284; J1170; J2405; J7030; 82040; 82247; 82310; 82374; 82435; 82565; 82947; 84075; 84132; 84155; 84295; 84450; 84460; 84520; Q9967

== ENCOUNTER → 2018-09-19 | Outpatient (CLI) | payer BC ==
--- NOTE | 2018-09-19 20:08 | RADIOLOGY IMAGING REPORT ---
FACILITY: [facility] PATIENT NAME: Cata Gerard : 1995 MR: [id number] V: [id number] EXAM DATE: ORDERING PHYSICIAN: YANNICK GUEVARA TECHNOLOGIST: Location: [facility] - [place] Patient: Cata Gerard : 1995 Visit/Account:[id number] Date of Sevice: 09/19/2018 THYROID Indication: 22-year-old female with hypothyroidism. Evaluate for nodules. Comparison study: None Procedure: There has been satisfactory grayscale ultrasonic evaluation of the thyroid gland. Findings: Right lobe: The right lobe measures 4.2 cm x 0.9 cm x 1.3 cm in its sagittal, transverse and AP dimen sions. There is a tiny anechoic region of the lower pole that measures 2 mm in size, but there are no findings of a dominant nodule. Left lobe: The left lobe measures 3.6 cm x 0.8 cm x 1.1 cm in its sagittal, transverse and AP dimensi ons. There are no findings of a dominant nodule in the left side. IMPRESSION: 1. Essentially unremarkable thyroid ultrasound without findings of a dominant nodule in t he right or left side. Report Dictated By: Grady Garcia MD at 09/19/2018 8:03 PM Report E-Signed By: Grady Garcia MD at 09/19/2018 8:04 PM WSN:[id number]
== END ==
LOC: US 01:19
PROVIDERS: ATTEND Family Medicine
DX: E03.9 Hypothyroidism, unspecified (principal)
CPT/HCPCS: 76536